=== PATIENT | male | born 1975 | race Two or more races ===

== ENCOUNTER 2017-04-22 22:57 | Emergency (ER) | payer OTHER ==
[~2017-04-22] VITALS: Ht 172.7 cm; Wt 82.5 kg
[2017-04-22 23:07] VITALS: BP 120/75
== END 2017-04-23 00:40 | disposition home or self-care (01) ==
LOC: ED 23:59
DX: J02.8 Acute pharyngitis due to other specified organisms (principal)
CPT/HCPCS: 87081; 87880; 99284